=== PATIENT | female | born 1990 | race Hispanic/Latino ===

== ENCOUNTER 2017-05-23 11:25 | Emergency (ER) | payer MEDICAID, OTHER ==
[2017-05-23 11:41] VITALS: BP 112/74
[2017-05-23] MEDS ORDERED: Lidocaine 1% 50 ML MDV INJECT ONE (11:54)
--- NOTE | 2017-05-23 12:23 | EDM.PDOC ---
ED HPI GENERAL MEDICAL PROBLEM - General Chief Complaint: Laceration Stated Complaint: HEAD INJURY Time Seen by Provider: 05/23/17 11:51 Source of Information: Reports: Patient, RN Notes Reviewed - History of Present Illness INITIAL COMMENTS - FREE TEXT/NARRATIVE: 26 old female lost her balance, was feeling dizzy lightheaded and struck her head against the corner of a doorway. She states she had been drinking last evening so believes she was weak and dizzy this morning from that standpoint. Suffered resultant laceration back of her scalp. She states she was "dazed from this incident" no complete LOC. Is have moderate posterior headache. No neck back or other pain or injury from this incident. She states she did have a tetanus shot just a year or 2 ago. Posterior Headache Pain Score (Numeric/FACES): 10 - Related Data Allergies Allergy/AdvReac Type Severity Reaction Status Date / Time No Known Allergies Allergy Verified 06/04/16 20:55 Home Meds: Home Meds . [No Known Home Meds] 01/21/16 [History] Past Medical History - Past Health History Medical/Surgical History: Denies Medical/Surgical History Social & Family History - Family History Family Medical History: Noncontributory - Tobacco Use Smoking Status *Q: Current Every Day Smoker Years of Tobacco use: 2 Packs/Tins Daily: 0.5 - Caffeine Use Caffeine Use: Reports: Soda - Recreational Drug Use Recreational Drug Use: No Drug Use in Last 12 Months: Yes Recreational Drug Type: Reports: Marijuana/Hashish Recreational Drug Use Frequency: Socially ED ROS GENERAL - Review of Systems Review Of Systems: See Below Constitutional: Reports: No Symptoms HEENT: Reports: Other (Patient does have localized posterior scalp discomfort). Denies: Vision Change Respiratory: Denies: Shortness of Breath, Pleuritic Chest Pain Cardiovascular: Denies: Chest Pain GI/Abdominal: Denies: Abdominal Pain, Vomiting Musculoskeletal: Denies: Neck Pain, Back Pain, Joint Pain Skin: Reports: No Symptoms ED EXAM, SKIN/RASH Exam: See Below General Appearance: Alert, Mild Distress Eye Exam: Bilateral Eye: PERRL Head: Other (5 cm moderately deep gaping laceration posterior aspect of scalp, no significant bleeding at this time, no foreign material seen) Neck: Non-Tender Respiratory/Chest: No Respiratory Distress Cardiovascular: Regular Rate, Rhythm Extremities: Normal Inspection, Normal Range of Motion Neurological: Alert, Oriented, No Motor/Sensory Deficits Skin: Warm, Dry, Normal Color ED SKIN PROCEDURES - Laceration/Wound Repair Posterior Head Lac/Wound length In cm: 5 Appearance: Linear, Clean Distal NVT: Neuro & Vascular Intact Anesthetic Type: Local Local Anesthesia - Lidocaine (Xylocaine): 1% Plain Skin Prep: Saline Suture Size: 3-0 # of Sutures: 9 Suture Type: Nylon Suture Size: 4-0 # of Sutures: 3 Repaired with: Vicryl Course - Vital Signs Last Recorded V/S: Last Vital Signs Temp 98.5 F 05/23/17 11:40 Pulse 103 H 05/23/17 11:40 Resp 20 05/23/17 11:40 BP 112/74 05/23/17 11:40 Pulse Ox 99 05/23/17 11:40 - Orders/Labs/Meds Meds: Medications Discontinued Medications Generic Name Dose Route Start Last Admin Trade Name Ayde PRN Reason Stop Dose Admin Lidocaine HCl 50 ml 05/23/17 11:54 05/23/17 12:35 Xylocaine 1% INJECT 05/23/17 11:55 50 ml ONETIME ONE Administration Departure - Departure Time of Disposition: 12:18 Disposition: Home, Self-Care 01 Condition: Fair Clinical Impression: Scalp laceration Qualifiers: Encounter type: initial encounter Qualified Code(s): S01.01XA - Laceration without foreign body of scalp, initial encounter - Discharge Information Referrals: PCP,None [Primary Care Provider] - Forms: ED Department Discharge Additional Instructions: Stitches out in about 9-10 days, laceration wound care instructions, stitches may be taken out for no additional charge at our [facility] clinic, call [phone] for appointment.
== END 2017-05-23 13:06 | disposition home or self-care (01) ==
LOC: JD.ED 11:25
DX: S01.01XA Laceration without foreign body of scalp, initial encounter (principal); F17.210 Nicotine dependence, cigarettes, uncomplicated; W22.8XXA Striking against or struck by other objects, initial encounter
CPT/HCPCS: 12002; 99282-25; 99283-25

== ENCOUNTER 2017-06-05 16:57 | Emergency (ER) | payer MEDICAID | END 2017-06-05 17:30 | disposition home or self-care (01) | LOC: JD.ED 16:57 ==